=== PATIENT | male | born 2000 | race African-American/Black ===

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

== ENCOUNTER 2020-02-27 19:18 | Inpatient (IN) ==
[2020-02-27] MEDS ORDERED: ONDANSETRON 4 MG/2 ML VIAL IV STA (20:00)
[2020-02-27] MEDS ORDERED: MORPHINE 4 MG/1 ML VIAL IV STA (20:00)
[2020-02-27] MEDS ORDERED: SODIUM CHLORIDE 0.9% 1,000 ML IV STA (20:00)
[2020-02-27 20:35] LABS: Basophils # 0.1 10*3/uL (0.0-0.2); Basophils % 0.8 % (0.0-0.8); Eosinophils % 0.1 % (0.00-10.9); Hematocrit 27.9 VOL% (42.0-52.0); Hemoglobin 9.6 GM/DL (14.0-18.0); Immature Granulocytes % 0.6 %; Immature Granulocytes Absolute 0.09 #; Lymphocytes # 1.7 10*3/uL (1.4-4.0); Lymphocytes % 10.9 % (21.2-54.2); Mean Corpuscular HGB Conc 34.4 GM/DL (32-36); Mean Corpuscular Volume 84.5 FL (87-102); Mean Platelet Volume 9.6 FL (9.6-12.0); Monocytes % 5.9 % (1.7-12.7); NRBC # 0.09 10*3/uL; Neutrophils % 81.7 % (38.7-73.9); Platelet Count 421 T/CUMM (130-400); Red Cell Distribution Width 23.7 % (9.3-17.3); White Blood Count 15.3 T/CUMM (4-12)
[2020-02-27 20:49] LABS: Albumin 4.6 G/DL (3.4-5.0); Bilirubin,Total 3.9 MG/DL (0.2-1.0); Calcium 9.1 MG/DL (8.5-10.1); Osmolality,Calculated 274.5 MOS/KG (273-304)
[2020-02-27 20:57] LABS: Apearance,Urine CLEAR (Clear); Bilirubin,Urine Negative (Negative); Blood, Urine Negative (Negative); Glucose,Urine (UA) Negative (Negative); Ketones,Urine Negative (Negative); Nitrite,Urine Negative (Negative); Protein,Urine Negative; Squamous Epithelial Cell,Urine Occasional /HPF (0-10); Urine Color Yellow (Yellow); Urine Specific Gravity 1.011 (1.001-1.035); Urine Urobilinogen < 2.0 EU/DL (0.2-1.0)
[2020-02-27 21:00] LABS: Lymphocytes 9 % (20-55); Segmented Neutrophils 89 % (50-85); Total Cells Counted 100
[2020-02-27 21:03] LABS: Anisocytosis 3+; Hypochromasia 3+; Sickle Cells 2+
[2020-02-27 21:05] LABS: Platelet Estimate Normal
[2020-02-27] MEDS ORDERED: KETOROLAC 30 MG/1 ML VIAL IV STA (21:21)
[2020-02-28] MEDS ORDERED: DEXTROSE 50% 25 GM/50 ML VIAL IV PRN (00:44)
[2020-02-28] MEDS ORDERED: ONDANSETRON 4 MG/2 ML VIAL IV PRN (00:44)
[2020-02-28] MEDS ORDERED: GLUCAGON 1 MG VIAL IM PRN (00:44)
[2020-02-28] MEDS: SODIUM CHLORIDE 0.9% 1,000 ML IV SCH (01:59)
[2020-02-28] MEDS: MORPHINE 4 MG/1 ML VIAL IV PRN ×2 (03:49→07:08)
[2020-02-28 05:37] LABS: Basophils # 0.1 10*3/uL (0.0-0.2); Basophils % 0.6 % (0.0-0.8); Hematocrit 26.2 VOL% (42.0-52.0); Hemoglobin 9.2 GM/DL (14.0-18.0); Immature Granulocytes % 0.6 %; Immature Granulocytes Absolute 0.08 #; Lymphocytes # 1.9 10*3/uL (1.4-4.0); Lymphocytes % 14.5 % (21.2-54.2); Mean Corpuscular HGB Conc 35.1 GM/DL (32-36); Mean Platelet Volume 9.5 FL (9.6-12.0); NRBC # 0.08 10*3/uL; Neutrophils % 76.3 % (38.7-73.9); Platelet Count 398 T/CUMM (130-400); Red Blood Count 3.12 MC/CUMM (3.8-5.5); Red Cell Distribution Width 22.6 % (9.3-17.3); White Blood Count 13.4 T/CUMM (4-12)
[2020-02-28 06:01] LABS: Hypochromasia 1+
[2020-02-28 06:02] LABS: Calcium 9.4 MG/DL (8.5-10.1); Elliptocytes Few; Howell-Jolly Bodies Slight; Osmolality,Calculated 274.7 MOS/KG (273-304); Pappenheimer Bodies Slight; Platelet Estimate Adequate; Sickle Cells 1+; Target Cells Few
[2020-02-28] MEDS ORDERED: NALOXONE 0.4 MG/ML VIAL IV PRN (08:16)
[2020-02-28] MEDS ORDERED: HYDROmorphone PCA 30 MG/30 ML SYRINGE IV SCH (08:30)
[2020-02-28] MEDS: PANTOPRAZOLE 40 MG TABLET PO SCH (08:38)
[2020-02-28] MEDS: HYDROXYUREA 500 MG CAPSULE PO SCH (08:38)
[2020-02-28] MEDS: ENOXAPARIN 40 MG/0.4 ML SYRINGE SUBCUT SCH (08:39)
[2020-02-28] MEDS: MONTELUKAST CHEW 5 MG TABLET PO SCH (08:39)
[2020-02-28] MEDS: FOLIC ACID 0.4 MG TABLET PO SCH (08:39)
[2020-02-28] MEDS: cefTRIAXone 1,000 MG in SYRINGE 1 EACH IV SCH (08:39)
[2020-02-29] MEDS ORDERED: HYDROmorphone PCA 30 MG/30 ML SYRINGE IV SCH (08:30)
[2020-02-29] MEDS: PANTOPRAZOLE 40 MG TABLET PO SCH (09:39)
[2020-02-29] MEDS: cefTRIAXone 1,000 MG in SYRINGE 1 EACH IV SCH (09:39)
[2020-02-29] MEDS: FOLIC ACID 0.4 MG TABLET PO SCH (09:39)
[2020-02-29] MEDS: HYDROXYUREA 500 MG CAPSULE PO SCH (09:39)
[2020-02-29] MEDS: MONTELUKAST CHEW 5 MG TABLET PO SCH (09:39)
[2020-02-29] MEDS: SODIUM CHLORIDE 0.9% 1,000 ML IV SCH ×3 (09:39→18:06)
[2020-02-29] MEDS: ENOXAPARIN 40 MG/0.4 ML SYRINGE SUBCUT SCH (09:40)
[2020-03-01 05:23] LABS: Basophils # 0.1 10*3/uL (0.0-0.2); Eosinophils # 0.3 10*3/uL (0.0-0.87); Eosinophils % 2.6 % (0.00-10.9); Hematocrit 22.6 VOL% (42.0-52.0); Hemoglobin 7.9 GM/DL (14.0-18.0); Immature Granulocytes % 0.3 %; Immature Granulocytes Absolute 0.03 #; Lymphocytes # 4.9 10*3/uL (1.4-4.0); Lymphocytes % 46.6 % (21.2-54.2); Mean Corpuscular Volume 83.4 FL (87-102); Mean Platelet Volume 10.2 FL (9.6-12.0); Monocytes % 12.9 % (1.7-12.7); NRBC # 0.06 10*3/uL; Neutrophils % 36.6 % (38.7-73.9); Platelet Count 315 T/CUMM (130-400); Red Blood Count 2.71 MC/CUMM (3.8-5.5); Red Cell Distribution Width 22.2 % (9.3-17.3); White Blood Count 10.5 T/CUMM (4-12)
[2020-03-01 05:45] LABS: Atypical Lymphocytes Few; Eosinophils 2 % (0-10); Lymphocytes 53 % (20-55); Nucleated Red Blood Cells 1 (0-5); Segmented Neutrophils 39 % (50-85); Sickle Cells 1+; Total Cells Counted 100
[2020-03-01 05:46] LABS: Anisocytosis 1+; Hypochromasia 1+; Macrocytosis 1+; Target Cells Few
[2020-03-01 05:47] LABS: Howell-Jolly Bodies Slight; Ovalocytes Slight; Pappenheimer Bodies Slight
[2020-03-01 05:56] LABS: Calcium 8.8 MG/DL (8.5-10.1); Osmolality,Calculated 278.3 MOS/KG (273-304)
[2020-03-01 06:35] VITALS: BP 111/51
[2020-03-01] MEDS: cefTRIAXone 1,000 MG in SYRINGE 1 EACH IV SCH (08:26)
[2020-03-01] MEDS: FOLIC ACID 0.4 MG TABLET PO SCH (08:27)
[2020-03-01] MEDS: MONTELUKAST CHEW 5 MG TABLET PO SCH (08:27)
[2020-03-01] MEDS: PANTOPRAZOLE 40 MG TABLET PO SCH (08:27)
[2020-03-01] MEDS: HYDROXYUREA 500 MG CAPSULE PO SCH (08:27)
[2020-03-01] MEDS: ENOXAPARIN 40 MG/0.4 ML SYRINGE SUBCUT SCH (10:17)
== END 2020-03-01 09:55 | disposition home or self-care (01) | DRG 812 ==
LOC: N.ED 19:18 → N.EDINP 02-28 00:44 → SUATTDRO 02-28 00:44 → N.3E 02-28 01:10
PROVIDERS: ADMIT Family Medicine; ATTEND Emergency Medicine